=== PATIENT | male | born 1995 | race African-American/Black ===

== ENCOUNTER 2017-08-04 10:19 | Emergency (ER) | payer MEDICAID ==
[~2017-08-04] VITALS: Ht 172.7 cm; Wt 68.0 kg
[2017-08-04 10:21] VITALS: BP 126/78; PULSE 65; RESP 15; TEMP 98.4; O2SAT 96
[2017-08-04 12:19] VITALS: BP 130/58; PULSE 70; RESP 16; O2SAT 99
--- NOTE | 2017-08-04 12:41 | PD ---
HPI Chief Complaint: Medical Clearance Time Seen by Provider: 12:19 Travel History International Travel<30 days: No Contact w/Intl Traveler<30days: No Traveled to known affect area: No History of Present Illness HPI 21-year-old male was sent to the emergency room from his school at [employer] after he told his girlfriend that he wanted to . Patient tells me that this was taken out of context. He has been depressed since there has been a lot of stress from school, personal life and in general. Also he broke up with his girlfriend last night. This morning among other things he told her that he wants to . The girlfriend called [employer]. The recommended that patient should come to the emergency room. That's why he is here. Now he saying he did not mean any of that. He is otherwise a healthy person. He's not on any medications. There is no one with him here currently to verify the story. Vital signs otherwise stable. Patient says he is tired and he wants to sleep since he didn't sleep very well last night. [facility] Past Medical History Narrative Medical List of his past medical, surgical, social and family history is reviewed from the nursing note. Medical History: Denies Significant Hx Influenza Vaccination: Yes Past Surgical History Surgical History: No Previous Surgery Social History Alcohol Use: No Tobacco Use: No Substance Use: No Allergies-Medications (Allergen,Severity, Reaction): Coded Allergies: No Known Allergies (Verified Allergy, Unknown, 08/04/17) Comments No known drug allergies. Reported Meds & Prescriptions Reported Meds & Active Scripts Active No Active Prescriptions or Reported Medications Narrative Medication List of his home medications reviewed from the nursing note Review of Systems Except as stated in HPI: all other systems reviewed are Neg Psychiatric: Positive: Depression Physical Exam Narrative GENERAL: Awake, alert, no obvious distress SKIN: Focused skin assessment warm/dry. HEAD: Atraumatic. Normocephalic. EYES: Pupils equal and round. No scleral icterus. No injection or drainage. ENT: No nasal bleeding or discharge. Mucous membranes pink and moist. NECK: Trachea midline. No JVD. CARDIOVASCULAR: Regular rate and rhythm. No murmur appreciated. RESPIRATORY: No accessory muscle use. Clear to auscultation. Breath sounds equal bilaterally. GASTROINTESTINAL: Abdomen soft, non-tender, nondistended. Hepatic and splenic margins not palpable. MUSCULOSKELETAL: No obvious deformities. No clubbing. No cyanosis. No edema. NEUROLOGICAL: Awake and alert. No obvious cranial nerve deficits. Motor grossly within normal limits. Normal speech. PSYCHIATRIC: Appropriate mood and affect; insight and judgment normal. Data Data Last Documented VS Orders Orders Diet Regular Basic (08/04/17 Lunch) Ed Discharge Order (08/04/17 20:01) [facility] Medical Decision Making Medical Screen Exam Complete: Yes Emergency Medical Condition: Yes Medical Record Reviewed: Yes Differential Diagnosis Depression related to stress Narrative Course 3:06 PM I have medically cleared him. He needs to be seen by psych to get a psych screen. Procedures EKG Prior to Arrival: No Scripts No Active Prescriptions or Reported Meds Peterson Gibbs MD Aug 04, 2017 12:41
--- NOTE | 2017-08-04 20:01 | PD ---
Physical Exam Date Seen by Provider: Aug 04, 2017 Time Seen by Provider: 19:59 Data Data Last Documented VS Vital Signs Date Time Temp Pulse Resp B/P (MAP) Pulse Ox O2 Delivery O2 Flow Rate FiO2 08/04/17 20:13 08/04/17 12:19 70 16 99 Room Air 08/04/17 10:21 98.4 Orders Orders Diet Regular Basic (08/04/17 Lunch) Ed Discharge Order (08/04/17 20:01) MDM Supervised Visit with VENKATA: No Narrative Course This patient was initially evaluated by Dr. Gibbs. Please see her note for those details. I was asked to evaluate the patient. He was here voluntarily for psychiatric evaluation. He states that in the midst of an argument with his girlfriend he told her that he would kill himself. He denies psychiatric history or previous suicide attempt. 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 He states that he no longer wants to have psychiatric evaluation. He states that he is not suicidal. He states that the [employer] is traveling for an away football game and he wants to participate in that. He states that he has a close relationship with his family and also plays in the band at [employer]. He is aware of counseling services available at college. On my exam the patient is up beat, makes appropriate eye contact. I feel that he is safe for discharge with outpatient resources. He does not meet Tay Act criteria. He is stable and discharged home. Diagnosis Primary Impression: Encounter for medical screening examination Referrals: Psychiatrist Additional Instruction: Rest, hydrate. Return to normal, gentle activities as tolerated. Avoid known stressors. Follow-up with a counselor on-campus or psychiatrist as discussed. Return to the ED for any urgent or emergent medical condition. Scripts No Active Prescriptions or Reported Meds Disposition: 01 DISCHARGE HOME Condition: Stable Kathi Bolivar Aug 04, 2017 20:01
== END 2017-08-04 20:15 | disposition home or self-care (01) ==
LOC: NEPD 10:19
DX: F32.9 Major depressive disorder, single episode, unspecified (principal)
CPT/HCPCS: 99281